=== PATIENT | female | born 1975 | race Caucasian/White ===

== ENCOUNTER → 2023-12-08 11:54 | Day surgery (SDC) | payer BC, SELFPAY ==
[2023-12-08] VITALS (14 sets, daily range): BP systolic 111–152; BP diastolic 68–101; BMI 42.8
--- NOTE | 2023-12-08 01:31 | ED.GENMED ---
History of Present Illness
General
Chief Complaint: Throat Problem
Source: patient and previous hospital records (ED visit 2 years ago for very similar complaint/globus sensation after swallowing a pill. Concern for retained esophageal pill fragments. EGD at that time showed normal esophagus no evidence of
stricture nor retained pill fragments there was note of mild gastritis.)
Exam Limitations: none
Time Seen by Provider: 12/08/23 01:14
Nursing documentation reviewed up to this point in time: agreed with
Travel History
Have you had any contact with someone who has COVID-19?: No
Do you have any symptoms of coronavirus? Fever > 100 degrees, chills, cough, shortness of breath, sore throat, loss of taste or smell, muscle aches, or headache?: No
History of Present Illness
History of Present Illness:
This is a 48-year-old woman who has history of seasonal allergies maintained on antihistamine. She also notes intermittent episodes of odynophagia feeling that food gets stuck in her esophagus but after some time generally resolves.
She presented to this ED 2 years ago with similar complaints of dysphagia/odynophagia after swallowing a pill but at that time no vomiting. Evaluated by GI during that ED visit and underwent upper endoscopy which showed normal esophagus, no
retained pill fragments but there was note of mild gastritis.
She has had no follow-up with GI since then and does admit that symptoms have worsened over the past 6 to 12 months generally occurring every 2 to 3 months.
Tonight while at a wedding she ate a piece of soto wrapped filet mignon around 6:30 PM with immediate choking sensation and then sense of mid substernal chest discomfort and since then has been intermittently vomiting saliva every 20 to 30 minutes
and abrupt regurgitation of water after swallowing. She denies cough nor shortness of breath. She does admit to persistent mild substernal discomfort, ache that is nonradiating.
Similar symptoms with previous esophageal food obstructions that generally resolve within a few hours but no resolution since 6:30 PM last night. She denies hematemesis. No fever nor chills.
She takes no anticoagulants.
She denies alcohol nor drug use as well as non-smoker.
Last menstrual period 3 to 4 months ago which is not unusual for her. She denies risk of .
Past History
Past History
ED Past Medical History: Asthma, Other (Seasonal allergies) and Other (Intermittent esophageal food obstruction which generally resolve on their own. Prior upper endoscopy November 2021 showed normal esophagus, mild gastritis)
ED Past Surgical History: Other (Right Carpal Tunnel Surgery)
Patient has exhibited threatening behavior?: No
Social History
Tobacco: Non-smoker
Alcohol: None
Drug: None
Personal:
Living: with family
Employment: Employed ([employer])
Family History
Family History: CAD; Negative Early CAD
Phy Exam
Physical Exam
Physical Exam:
GENERAL: 48-year-old overweight woman appears her stated age, awake and alert, appears in mild distress, holding emesis bag at the ready intermittently spitting saliva into the bag. is accompanying.
EYE: anicteric
NECK: Supple, nontender, no meningismus, no significant adenopathy.
ENT: posterior pharynx is clear, oral mucosa is moist. No rhinorrhea.
CARDIAC: Regular rate and rhythm. no murmur.
LUNGS: Clear breath sounds bilaterally, no acute respiratory distress, no wheezes/rales/rhonchi
ABDOMEN: Rotund, soft, nondistended, without focal tenderness, no r/g, normoactive BS.
NEUROLOGICAL: Alert and oriented x3, no focal neuro deficits.
SKIN: Warm and dry, normal color, skin intact. No rash.
MUSCULOSKELETAL: No C/C/E. peripheral pulses are full and equal b/l. No palpable tenderness.
PSYCH: Normal and appropriate interaction.
Course
Orders/Labs/Results
Orders:
Orders
12/08/23 01:26
0.9% Sodium Chloride 1000 ml [Nss] 1,000 ml IV BOLUS
Glucagon [GlucaGen] 1 mg IV NOW STA
Pantoprazole [Protonix IV] 40 mg IV NOW STA
12/08/23 01:27
Electrocardiogram (*1) Urgent
Reason for Study: Chest Pain
EKG- Treatment ONCE
Test Result ONCE
12/08/23 01:35
Complete Blood Count/With Diff Urgent
Comprehensive Metabolic Panel Urgent
HCG, Serum Qualitative Screen Urgent
Lipase Urgent
12/08/23 03:33
Encourage PO Hydration-Treatme ONCE
12/08/23 06:42
0.9% Sodium Chloride 1000 ml [Nss] 1,000 ml IV 150 mls/hr
Abnormal Lab Results
12/08/23
01:35
Absolute Neuts (auto) 6.8 H 10^3/uL
(1.4-6.5)
Absolute Monos (auto) 0.8 H 10^3/uL
(0.1-0.6)
Lymphocytes % 17.8 L %
(20.5-51.1)
Chloride 109 H mmol/L
(98-107)
Glucose 125 H mg/dl
(70-99)
AST 44 H U/L
(14-36)
ALT 57 H U/L
(0-35)
Total Protein 8.3 H g/dl
(6.3-8.2)
12/08/23 01:35
12/08/23 01:35
Vital Signs
Initial and Last Documented VS:
Initial Vital Signs
Temp Pulse Resp BP Pulse Ox
98.1 F 99 20 152/101 97
12/08/23 01:05 12/08/23 01:05 12/08/23 01:05 12/08/23 01:05 12/08/23 01:05
Last Documented Vital Signs
Temp Pulse Resp BP Pulse Ox
98.1 F 90 16 140/98 98
12/08/23 01:05 12/08/23 02:50 12/08/23 02:50 12/08/23 02:50 12/08/23 02:50
MDM/Problems Addressed
Differential Diagnosis Includes:
History is quite concerning for esophageal meat impaction. Severe esophagitis, CAD are less likely.
Will check labs, EKG and trial an IV dose of glucagon, Protonix and initiate IV fluids.
Will plan for GI consult.
Chronic conditions affecting care: Asthma
*Pulse Oximetry
Patient hypoxic: no
*EKG
Interpreted by ED Provider?: Yes
Interpretation: normal
Comparison EKG: no changes (Unchanged from previous July 2013)
Rate: normal
Rhythm: sinus
[place]: normal axis
Interval: normal interval
QRS Pattern: normal QRS
Ischemia: no ischemia
*Mechanic Recovery Interpretation
Rate: normal
Interpretation: normal
Rhythm: sinus
*Critical Care Note
Total Time (30-74mins, 75-104mins- exclusive of procedures): Not Applicable
Update Note
Update Note:
12/08/2023 04:00 AM
Patient had been feeling improved with no further vomiting thus trial of oral water which unfortunately resulted in recurrent vomiting/regurgitation of his water.
I suspect distal esophageal obstruction/food impaction.
GI has been notified, case discussed with Dr. Hamlin.
Will plan for EGD this a.m.
Patient advised. Will maintain n.p.o. status, no further oral fluid challenges. Will initiate maintenance IV fluids.
Labs showed normal CBC, minimally elevated LFTs, similar elevations noted 2012. Electrolytes within normal limits. Normal BUN and creatinine. hCG is negative as expected.
ED Attending Note
-
Portions of this chart may have been created with voice recognition software.� Occasional wrong word or��sound alike� substitutions may have occurred due to the inherent limitations of voice recognition software.
Discharge Plan
Departure
Patient Disposition: GI LAB
Date of Disposition: 12/08/23
Time of Disposition: 04:00
Admit to doctor: Do
Presentation/result/management discussed w/ accepting MD/: GI
Patient with high blood pressure during this ER visit?: Yes
Condition: Fair
Discharge Problem:
Esophageal obstruction due to food impaction
Instructions: Food Obstruction, BLOOD PRESSURE
Prescriptions:
No Action
cetirizine [Zyrtec] 10 MG tablet
10 mg PO DAILY
diphenhydramine HCl [Banophen] 25 MG capsule
25 mg PO BID PRN (Reason: allergies)
Referrals:
Armin Stephens MD [Family Provider] -
Hailey Hamlin MD [Active] - Call in 1-3 days for appt
Interventions
Interventions:
*Risk Screen - Suicide Last Done: 12/08/23 01:05
*General Assessment Last Done: 12/08/23 01:05
*Neglect/Abuse Screening Last Done: 12/08/23 01:05
ED- Fall Risk Assessment Last Done: 12/08/23 01:05
*ED COVID-19 Vaccine History Last Done: 12/08/23 01:05
ED-EENT Assessment Last Done: 12/08/23 01:41
ED- Pulmonary Assessment Last Done: 12/08/23 01:41
Discharge Date and Time
Print Language: NIGERIEN
[2023-12-08] MEDS: NSS 1000 IV ×2 (01:38→07:22)
[2023-12-08] MEDS: GlucaGen 1 MG IV (01:38)
[2023-12-08] MEDS: PROTONIX IV 40 MG IV (01:39)
[2023-12-08 01:43] LABS: % Basophils 0.3 % (0-2); % Eosinophils 3.6 % (0-6); % Immature Granulocytes 0.4 % (0-0.5); % Lymphocytes 17.8 % (20.5-51.1); % Monocytes 8.6 % (1.7-9.3); % Neutrophils 69.3 % (42.2-75.2); Absolute Eosinophils 0.4 10^3/uL (0-0.7); Absolute Lymphocytes 1.8 10^3/uL (1.2-3.4); Absolute Monocytes 0.8 10^3/uL (0.1-0.6); Absolute Neutrophils 6.8 10^3/uL (1.4-6.5); Hematocrit 40.7 % (37.0-47.0); Mean Corp Hgb Conc. 34.4 g/dL (33.0-37.0); Mean Corpuscular Hgb 29.6 pg (27.0-31.0); Mean Platelet Volume 10.1 fL (7.4-10.4); Nucleated Red Blood Cells % 0 %; Platelet Count 262 10^3/uL (130-400); Red Blood Cell Count 4.73 10^6/uL (4.20-5.40); Red Cell Dist. Width 13.4 % (11.5-14.5); White Blood Cell Count 9.8 10^3/uL (4.8-10.8)
[2023-12-08 01:53] LABS: HCG, Serum Qualitative Screen Negative
[2023-12-08 02:03] LABS: ALT (SGPT) 57 U/L (0-35); AST (SGOT) 44 U/L (14-36); Albumin 4.9 g/dl (3.5-5.0); Alkaline Phosphatase 83 U/L (38-126); Blood Urea Nitrogen 15 mg/dl (7-17); Calcium 9.6 mg/dl (8.4-10.2); Carbon Dioxide 24 mmol/L (22-30); Chloride 109 mmol/L (98-107); Estimated Creatinine Clearance > 125 ml/min; Glucose 125 mg/dl (70-99); Lipase 98 U/L (23-300); Potassium 3.7 mmol/L (3.5-5.1); Sodium 141 mmol/L (135-145); Total Bilirubin 0.4 mg/dl (0.2-1.3); Total Protein 8.3 g/dl (6.3-8.2); eGFR > 60.00
[2023-12-08] MEDS: MORPHINE SULFATE 4 MG IV (07:23)
--- NOTE | 2023-12-08 07:39 | CON.GI ---
Addendum entered and electronically signed by Hailey Moran Do, MD 12/08/23 11:14:
I saw and examined the patient.
The RESEARCH CENTER DIRECTOR's note was reviewed and I agree with the note.
Comment: Argelia is a 48yo W with h/o obesity and asthma who presents with food impaction. Unable to tolerate secretions. She has h/o dysphagia in past with food impaction in 2021 also requiring EGD with Dr Capellan. At that time food bolus had
passed. This time despite glucagon did not pass. Exam VSS NTTP, NABS. Labs with mild elevations in AST/ALT.
Impressions:
- Acute food impaction
- Asthma
- Obesity
- Elevated LFTs
Recommendation:
- Urgent EGD with plan for disimpaction
- Risk/benefits discussed
- Recommend PPI daily afterwards
- Plan to intubate
- Will need close GI OP follow up for workup of dysphagia. Strong suspicion for EoE given associated asthma history
All questions answered.
Addendum entered and electronically signed by TEN Tamayo 12/08/23 09:52:
message sent to office to arrange GI follow up
Original Note:
Consultation
-
Date/Time Consultation Requested: 12/08/23729
Date/Time Consultation Performed: 12/08/23729
Requesting Provider: Jenny Ferro DO
Performing Provider: TEN Avitia, Hailey Hamlin MD
Reason for Consultation: food impaction
Medical History
Chief Complaint / HPI
Chief Complaint: inability to swallow
History of Present Illness:
Pt is a 48yo with hx arthritis with regular NSAID use, Asthma, prior EGD 2021 with feeling pill stuck in throat and noted gastritis, erythematous duodenopathy she now presents with concern for food impaction since eating soto wrap at at wedding at
6:30pm. She admits to food sticking in past at random times but several episodes in past month. She was given Glucagon in ER without improvement and still with drooping and feeling of inability to pass food bolus.
She has current odynophagia, nausea, vomiting secretion and chest pain with food impaction. She denies chronic GERD or antiacid use, diarrhea, constipation, wt loss, or rectal bleeding.
11/2021 EGD [facility]- normal esophagus, gastritis, erythematous duodenopathy
Past Medical History
Past Medical History: Asthma and Other (seasonal allergies, intermittent food impactions, gastritis, arthritis )
Past Surgical History: Other (carpel tunnel surgery )
Social History
Tobacco: Non-Smoker
Alcohol: Occasional (rare )
Drug: None
Living: With Family
Employment: Employed
Family History
Family History: Reviewed & Not Pertinent
Allergies / Home Medications
Allergy/AdvReac Type Severity Reaction Status Date / Time
No Known Allergies Allergy Verified 11/30/21 03:45
�Medication �Instructions �Recorded
cetirizine 10 mg tablet (Zyrtec) 10 mg PO DAILY 11/30/21
diphenhydramine HCl 25 mg capsule 25 mg PO BID PRN allergies 11/30/21
(Banophen)
Review of Systems
-
History Source: Patient
Constitutional: Reports No Symptoms
EENT: Reports Other (odynophagia, drooping)
Respiratory: Reports Trouble Breathing (at times with Asthma)
Cardiac: Reports Chest Pain (with food bolus)
Abdomen/GI: Reports Nausea and Other (drooling with food bolus)
: Reports No Symptoms
Musculoskeletal: Reports Other (arthritis feet with regular NSAID use)
Neurological: Reports No Symptoms
Endocrine: Reports No Symptoms
Hematologic/Lymphatic: Reports No Symptoms
Vital Signs
Temp Pulse Resp BP Pulse Ox
97.6 F 90 20 128/86 97
12/08/23 07:25 12/08/23 07:25 12/08/23 07:25 12/08/23 07:25 12/08/23 07:25
Physical Exam
Exam
General: Well Developed, Well Nourished and Other (distress with food bolus-- sitting up in bed but calm and cooperative and drooling )
HEENT: Normocephalic and Anicteric
Respiratory: Clear
Cardiac: Regular Rhythm
GI: Soft, Non Tender and Non Distended
Musculoskeletal: No Clubbing and No Cyanosis
Skin: Warm and Dry
Neuro: Awake, Alert and AO x 3
Psych: Calm
Results
WBC 9.8 10^3/uL (4.8-10.8) 12/08/23 01:35
Hgb 14.0 g/dL (12.0-16.0) 12/08/23 01:35
Hct 40.7 % (37.0-47.0) 12/08/23 01:35
MCV 86.0 fL (81.0-99.0) 12/08/23 01:35
Plt Count 262 10^3/uL (130-400) 12/08/23 01:35
Absolute Neuts (auto) 6.8 10^3/uL (1.4-6.5) H 12/08/23 01:35
Sodium 141 mmol/L (135-145) 12/08/23 01:35
Potassium 3.7 mmol/L (3.5-5.1) 12/08/23 01:35
Chloride 109 mmol/L (98-107) H 12/08/23 01:35
Carbon Dioxide 24 mmol/L (22-30) 12/08/23 01:35
BUN 15 mg/dl (7-17) 12/08/23 01:35
Creatinine 0.6 mg/dL (0.6-1.0) 12/08/23 01:35
Calcium 9.6 mg/dl (8.4-10.2) 12/08/23 01:35
Total Bilirubin 0.4 mg/dl (0.2-1.3) 12/08/23 01:35
AST 44 U/L (14-36) H 12/08/23 01:35
ALT 57 U/L (0-35) H 12/08/23 01:35
Alkaline Phosphatase 83 U/L (38-126) 12/08/23 01:35
Lipase 98 U/L (23-300) 12/08/23 01:35
Diagnostic Image Results:
Prior GI Procedures:
EGD: 11/2021 EGD [facility]- normal esophagus, gastritis, erythematous duodenopathy
Colonoscopy: none
Assessment / Plan
-
Pt is a 48yo with hx arthritis with regular NSAID use, Asthma, prior EGD 2021 with feeling pill stuck in throat and noted gastritis, erythematous duodenopathy she now presents with concern for food impaction since eating soto wrap at at wedding at
6:30pm. She admits to food sticking in past at random times but several episodes in past month. She was given Glucagon in ER without improvement and still with drooping and feeling of inability to pass food bolus.
-food impaction
-hx intermitttent food impaction not requiring admission
-hx prior EGD for pill sticking with noted gastritis, erythematous duodenopathy
-asthma
-Regular NSAID use for arthritis
PLAN:
etiology of symptoms with concern for food impaction
possible underlying EOE, dysmotility, esophagitis with NSAID use vs other
no improvement with glucagon
plan for EGD today
cont NPO
discussed NSAID avoidance
will need PPI
OP follow up with Dr. Capellan-- will also need screening colonoscopy OP
-
-
Thank you for consultation and allowing me to participate in the patient's care. Please call the donor services technician GI physician during the after hours with any questions or concerns.
--- NOTE | 2023-12-08 11:14 | W.PN.UPDATE ---
Update Note
Progress Note Update
For billing purposes
== END ==
LOC: EMR 00:59 → PACU 11:54
PROVIDERS: ATTENDING PHYSICIAN Internal Medicine Gastroenterology; EMERGENCY PHYSICIAN Emergency Medicine; FAMILY PHYSICIAN Internal Medicine
DX: T18.128A Food in esophagus causing other injury, initial encounter (principal); Y93.89 Activity, other specified; K31.89 Other diseases of stomach and duodenum
CPT/HCPCS: 43247; 80053; 83690; 84703; 85025; 93005; 96361; 96374; 96375; 99284; J1610

== ENCOUNTER → 2023-12-10 08:32 | Outpatient (REF) | payer BC, SELFPAY | LOC: RAD 08:32 | PROVIDERS: ATTENDING PHYSICIAN Internal Medicine Gastroenterology; FAMILY PHYSICIAN Internal Medicine | DX: T18.128D Food in esophagus causing other injury, subsequent encounter (principal); W44.F3XD Food entering into or through a natural orifice, subsequent encounter | CPT/HCPCS: 71046 ==

== ENCOUNTER 2023-12-19 16:06 | Emergency (ER) | payer BC, SELFPAY ==
[2023-12-19 16:08] VITALS: BP 143/99; BMI 42.5
[2023-12-19 16:51] VITALS: BP 120/83
[2023-12-19 17:00] VITALS: BP 105/77
--- NOTE | 2023-12-19 17:02 | ED.GENMED ---
History of Present Illness
General
Chief Complaint: Abdominal Symptoms
Source: patient
Exam Limitations: none
Time Seen by Provider: 12/19/23 16:50
Travel History
Have you had any contact with someone who has COVID-19?: No
Do you have any symptoms of coronavirus? Fever > 100 degrees, chills, cough, shortness of breath, sore throat, loss of taste or smell, muscle aches, or headache?: No
History of Present Illness
History of Present Illness:
See MDM
Past History
Past History
ED Past Medical History: Asthma, Other (Seasonal allergies) and Other (Intermittent esophageal food obstruction which generally resolve on their own. Prior upper endoscopy November 2021 showed normal esophagus, mild gastritis)
ED Past Surgical History: Other (Right Carpal Tunnel Surgery)
Patient has exhibited threatening behavior?: No
Social History
Tobacco: Non-smoker
Alcohol: None
Drug: None
Personal:
Living: with family
Employment: Employed ([employer]
Family History
Family History: CAD; Negative Early CAD
Phy Exam
Physical Exam
Physical Exam:
See MDM
Course
Orders/Labs/Results
Orders:
Orders
12/19/23 16:11
EKG [Electrocardiogram (*1)] Urgent
Reason for Study: Chest Pain
12/19/23 16:12
EKG- Treatment ONCE
12/19/23 16:54
0.9% Sodium Chloride 1000 ml [Nss] 1,000 ml IV BOLUS
Glucagon [GlucaGen] 1 mg IV NOW STA
12/19/23 17:40
Glucagon [GlucaGen] 1 mg IV NOW STA
12/19/23 18:14
Viscous Lidocaine 2% [Xylocaine Viscous Cup] 15 ml PO ONCE ONE
Vital Signs
Initial and Last Documented VS:
Initial Vital Signs
Temp Pulse Resp BP Pulse Ox
98 F 108 20 143/99 96
12/19/23 16:08 12/19/23 16:08 12/19/23 16:08 12/19/23 16:08 12/19/23 16:08
Last Documented Vital Signs
Temp Pulse Resp BP Pulse Ox
98 F 95 18 107/73 96
12/19/23 16:08 12/19/23 16:53 12/19/23 16:53 12/19/23 18:00 12/19/23 18:00
MDM/Problems Addressed
Differential Diagnosis Includes:
HPI and MDM Narrative:
48-year-old female presenting with chest discomfort and trouble swallowing secretions. Patient states this is very similar presentation to 2 weeks ago where she required endoscopy for esophageal food bolus removal. She was then placed on Protonix.
Symptoms reoccurred earlier today after she was eating cake. She drank water and felt as if the water stayed down but then she started spitting up her mucus and saliva.
Given her recent history for esophageal food obstruction, will give IV fluids and glucagon and reassess
Physical exam
General: Mildly uncomfortable
HEENT: protecting airway. Dry mucous membranes
Neck: appears supple
CV: No evidence of cyanosis. Regular rate and rhythm
Resp: No accessory muscle use
Abd: Non-distended
Extremities: No deformities
Neuro: alert
Psych: Normal affect
Skin: Intact
Problems Addressed including Acute and Chronic Conditions affecting care:
1. Esophageal food impaction
Acuity: acute
Prognosis: stable
Details: Patient having trouble with secretions. Will give glucagon and reassess
Updates
After 2 doses of glucagon, patient feeling better. She is tolerating water. I gave dose of viscous lidocaine. Patient now able to eat applesauce without difficulty. She feels comfortable going home
Differential Diagnosis (but not limited to): Esophageal food impaction, eosinophilic esophagitis
Testing considered: Chest x-ray
Drug therapy (if applicable): OTC meds, please see d/c instruction regarding Rx drugs
Amount and/or Complexity of Data Reviewed
Clinical info obtained from: Patient
External data reviewed: Recent endoscopy showing evidence of erythematous esophageal mucous membranes and food bolus
Labs I independently reviewed (but not limited to): N/A
Radiology: N/A
Pulse Ox: not hypoxic
EKG independently reviewed: Sinus rhythm, normal axis, no STEMI
Precision Farming Coordinator: N/A
Critical Care: N/A
Risk of Complication:
Social Determinants of health: Good social support
Discussed with other providers: N/A
Escalation of Care includes Admit/Obs: After being observed in the Emergency Department, pt stable for discharge.
Occasional wrong word or 'sound a like' substitutions may have occurred due to the inherent limitations of voice recognition software. Read the chart carefully and recognize, using context, where substitutions have occurred.
*Critical Care Note
Total Time (30-74mins, 75-104mins- exclusive of procedures): Not Applicable
ED Attending Note
-
Portions of this chart may have been created with voice recognition software.� Occasional wrong word or��sound alike� substitutions may have occurred due to the inherent limitations of voice recognition software.
Discharge Plan
Departure
Patient Disposition: Home (Routine Discharge)
Date of Disposition: 12/19/23
Time of Disposition: 18:35
Patient with high blood pressure during this ER visit?: No
Discharge Problem:
Esophagitis
Instructions: Esophagitis
Prescriptions:
No Action
cetirizine [Zyrtec] 10 MG tablet
10 mg PO DAILY
diphenhydramine HCl [Banophen] 25 MG capsule
25 mg PO BID PRN (Reason: allergies)
Referrals:
Armin Stephens MD [Family Provider] -
Activity Restrictions/Additional Instructions:
Please return for any worsening symptoms.
You may return at any time if you have further concerns.
Please follow up with your doctor and the philosophy and religion instructor.
Thank you for choosing [facility].
Interventions
Interventions:
*Risk Screen - Suicide Last Done: 12/19/23 16:08
*General Assessment Last Done: 12/19/23 16:42
*Neglect/Abuse Screening Last Done: 12/19/23 16:08
ED- Fall Risk Assessment Last Done: 12/19/23 18:29
*ED COVID-19 Vaccine History Last Done: 12/19/23 16:08
DP-Jcobpp-Cenhhxgsyq Assessment Last Done: 12/19/23 16:52
Discharge Date and Time
Print Language: SWEDISH
[2023-12-19] MEDS: NSS 1000 IV (17:12)
[2023-12-19] MEDS: GlucaGen 1 MG IV ×2 (17:12→17:44)
[2023-12-19 18:00] VITALS: BP 107/73
[2023-12-19] MEDS: XYLOCAINE VISCOUS CUP 15 ML PO (18:16)
== END 2023-12-19 18:44 | disposition home or self-care (01) ==
LOC: EMR 16:06
PROVIDERS: EMERGENCY PHYSICIAN Student in an Organized Health Care Education/Training Program; FAMILY PHYSICIAN Internal Medicine
DX: K20.90 Esophagitis, unspecified without bleeding (principal)
CPT/HCPCS: 99284; 96374; 96376; 96361; 93005; J1610

== ENCOUNTER → 2024-02-27 06:24 | Day surgery (SDC) | payer BC, SELFPAY | LOC: GI 06:24 | PROVIDERS: ATTENDING PHYSICIAN Internal Medicine | DX: K20.0 Eosinophilic esophagitis (principal); K29.50 Unspecified chronic gastritis without bleeding; B96.81 Helicobacter pylori [H. pylori] as the cause of diseases classified elsewhere; K22.89 Other specified disease of esophagus; R13.10 Dysphagia, unspecified | CPT/HCPCS: 43239; 88305; 88342 ==

== ENCOUNTER 2024-12-05 19:50 | Observation (INO) | payer BC, SELFPAY ==
[2024-12-05 15:00] VITALS: BP 134/90
[2024-12-05 15:19] LABS: % Basophils 0.2 % (0-2); % Eosinophils 3.8 % (0-6); % Immature Granulocytes 0.3 % (0-0.5); % Lymphocytes 24.6 % (20.5-51.1); % Monocytes 8.3 % (1.7-9.3); % Neutrophils 62.8 % (42.2-75.2); Absolute Eosinophils 0.2 10^3/uL (0-0.7); Absolute Lymphocytes 1.4 10^3/uL (1.2-3.4); Absolute Monocytes 0.5 10^3/uL (0.1-0.6); Absolute Neutrophils 3.7 10^3/uL (1.4-6.5); Hematocrit 38.4 % (37.0-47.0); Hemoglobin 13.1 g/dL (12.0-16.0); Mean Corp Hgb Conc. 34.1 g/dL (33.0-37.0); Mean Corpuscular Hgb 29.9 pg (27.0-31.0); Mean Corpuscular Volume 87.7 fL (81.0-99.0); Mean Platelet Volume 10.3 fL (7.4-10.4); Nucleated Red Blood Cells % 0 %; Platelet Count 278 10^3/uL (130-400); Red Blood Cell Count 4.38 10^6/uL (4.20-5.40); Red Cell Dist. Width 13.8 % (11.5-14.5); White Blood Cell Count 5.8 10^3/uL (4.8-10.8)
[2024-12-05 15:32] LABS: ALT (SGPT) 41 U/L (0-35); AST (SGOT) 34 U/L (14-36); Albumin 4.8 g/dl (3.5-5.0); Alkaline Phosphatase 87 U/L (38-126); Blood Urea Nitrogen 11 mg/dl (7-17); Calcium 9.4 mg/dl (8.4-10.2); Carbon Dioxide 26 mmol/L (22-30); Chloride 103 mmol/L (98-107); Glucose 107 mg/dl (70-99); Potassium 3.9 mmol/L (3.5-5.1); Sodium 140 mmol/L (135-145); Total Bilirubin 0.5 mg/dl (0.2-1.3); Total Protein 7.9 g/dl (6.3-8.2); eGFR > 60.00
--- NOTE | 2024-12-05 18:02 | ED.GENMED ---
History of Present Illness
General
Chief Complaint: Numbness
Time Seen by Provider: 12/05/24 17:47
History of Present Illness
History of Present Illness:
Patient is a 49-year-old woman with history of NAFLD D, asthma presenting to the emergency department with numbness tingling. Patient states that she woke up at 11 AM with a mild headache. She does have history of migraines. This does feel
similar to her migraines. The headache does slowly get better. At 1:45 PM she was at work when she noticed that her cheek went numb. She got evaluated by a nurse at her work and was found to have a right facial droop and right upper extremity
weakness and was sent to the emergency department. Patient states that her symptoms have seemed to resolve though she still feels off. Her headache is a 3 out of 10. She does feel some numbness to her cheek still. No traumatic injuries. No
chest pain. No shortness of breath
Past History
Past History
ED Past Medical History: Asthma, Other (Seasonal allergies) and Other (Intermittent esophageal food obstruction which generally resolve on their own. Prior upper endoscopy November 2021 showed normal esophagus, mild gastritis)
ED Past Surgical History: Other (Right Carpal Tunnel Surgery)
Patient has exhibited threatening behavior?: No
Social History
Tobacco: Non-smoker
Alcohol: None
Drug: None
Personal:
Living: with family
Employment: Employed ([employer])
Family History
Family History: CAD; Negative Early CAD
Phy Exam
Physical Exam
Physical Exam:
GENERAL: in no acute distress
HEENT: normocephalic, extraocular movements intact, moist oral mucosa
NECK: normal inspection
RESPIRATORY: no respiratory distress, clear to auscultation bilaterally
CARDIOVASCULAR: regular rate and rhythm
ABDOMEN/: soft, non-distended, non-tender to palpation, no rebound or guarding
EXTREMITIES: non-tender, no edema/swelling
NEUROLOGIC: NIH 2 alert and oriented x 3, cranial nerves II-XII intact, right upper extremity strength 4/5, left upper extremity strength 5/5, right lower extremity strength 5/5, left lower extremity strength 5/5, decreased sensation to the right
cheek and right arm normal [id number] and [id number], gait not tested formally
SKIN: warm
NIH Stroke Score
Level of Consciousness: 0 - Alert
LOC questions: 0-Answers both correctly
LOC Commands: 0-Performs both correctly
Best Gaze: 0-Normal
Visual Luis: 0=Normal, no visual loss
Facial palsy: 0=Normal, symmetrical
Motor - Right Arm: 1=Drift < 10 seconds
Motor - Left Arm: 0=No drift 10 seconds
Motor - Right Le-No drift 5 seconds
Motor - Left Le-No drift 5 seconds
Limb Ataxia: 0-Absent
Sensation: 1-Mild loss
Best Language: 0-No aphasia
Dysarthria: 0-Normal
Extinction and Inattention: 0-No abnormality
Total Score:: 2
Course
Orders/Labs/Results
Orders:
Orders
12/05/24 15:08
CT Head W/o Iv Contrast Urgent
Comment:
Reason For Exam: numbness/tingling right side of face
12/05/24 15:10
Complete Blood Count/With Diff Urgent
Comprehensive Metabolic Panel Urgent
12/05/24 17:47
Electrocardiogram (*1) Urgent
Reason for Study: TIA/Stroke
EKG- Treatment ONCE
12/05/24 18:07
CT HEAD/NECK ANG STROKE ALERT Urgent
Comment:
Reason For Exam: right deficits
12/05/24 18:56
Aspirin Chewable [Low Strength Aspirin] 324 mg PO NOW STA
Clopidogrel Bisulfate [Plavix] 300 mg PO NOW STA
12/05/24 19:00
Atorvastatin [Lipitor] 20 mg PO QPM
12/05/24 19:16
Glycohemoglobin (HgbA1c) Routine
12/05/24 19:36
Admit/Transfer Patient As Directed
Co-Sign Provider:
Level of Care: Observation services
Assign to:: Telemetry
Physician / Group: Marissa
Diagnosis: Headache / Right Facial Numbness
Reason for Telemetry: CVA/TIA
Date to Stop Telemetry: 12/08/24
Time to Stop Telemetry: 11:00
PRN Pain Medication Management As Directed
May give lesser potent ordered pain med per pt: Yes
preference::
Protocol:: Medication orders for pain may be administered in a
manner that supports deferring to patient preference
when the pt is:
- Requesting an ordered lesser potent pain medication.
Least to most potent pain medications are defined
as: acetaminophen < NSAID < tramadol < opioids
(morphine, oxycodone, hydromorphone).
- Requesting a lesser dose of the same medication IF
ORDERED.
- Requesting a less intrusive route of administration
if both routes are prescribed by the provider (PO <
IV).
12/05/24 19:37
Code Status As Directed
Resuscitation Status: Full Code
12/05/24 19:38
MR Brain W/o & With Contrast Routine
Comment:
Reason For Exam: Headache / Right Facial numbness
Recent pill cam endoscopy?: No
12/06/24 06:00
Cardiovascular Evaluation IN AM
12/06/24 08:00
Aspirin Low Dose EC [Aspir Low (Enteric Coated)] 81 mg PO DAILY
Clopidogrel Bisulfate [Plavix] 75 mg PO DAILY
12/08/24 11:00
DC Protocol for Telemetry ONCE
Abnormal Lab Results
12/05/24
15:10
Glucose 107 H mg/dl
(70-99)
ALT 41 H U/L
(0-35)
12/05/24 15:10
12/05/24 15:10
Vital Signs
Initial and Last Documented VS:
Initial Vital Signs
Temp Pulse Resp BP Pulse Ox
98.1 F 73 16 134/90 100
12/05/24 15:00 12/05/24 15:00 12/05/24 15:00 12/05/24 15:00 12/05/24 15:00
Last Documented Vital Signs
Temp Pulse Resp BP Pulse Ox
98.1 F 82 16 138/90 100
12/05/24 15:00 12/05/24 19:15 12/05/24 19:15 12/05/24 19:00 12/05/24 15:00
MDM/Problems Addressed
Differential Diagnosis Includes:
Patient is a 49-year-old woman presenting to the emergency department with headache and right-sided deficits that have been improving. During my evaluation patient's vitals were unremarkable the patient did have right-sided including a right upper
extremity drift and decreased sensation. Concern for TIA/CVA with complex migraine. Patient did have a CT scan completed prior to my evaluation which was negative for any acute abnormality. There was a arachnoid cyst seen. I did discuss with
on-call neurology given patient's symptoms and he recommended taking patient back for CT angio. Stroke alert was then called. During neurology evaluation NIH was 0. Given that the symptoms was improved TNK was held off. He did complete a SPG
block as a migraine treatment however had no effect. After shared decision making patient would prefer to be admitted for further workup. Discussed with hospitalist who excepted patient to their service
*Critical Care Note
Total Time (30-74mins, 75-104mins- exclusive of procedures): Not Applicable
ED Attending Note
-
Portions of this chart may have been created with voice recognition software.� Occasional wrong word or��sound alike� substitutions may have occurred due to the inherent limitations of voice recognition software.
Discharge Plan
Departure
Patient Disposition: Admit
Date of Disposition: 12/05/24
Time of Disposition: 19:23
Presentation/result/management discussed w/ accepting MD/DO: Hospitalist
Discharge Problem:
TIA (transient ischemic attack)
Prescriptions:
No Action
pantoprazole 40 mg tablet,delayed release (DR/EC)
40 mg PO DAILY
albuterol sulfate 90 mcg/actuation HFA aerosol inhaler
2 puff INHALATION Q6HPRN PRN (Reason: wheezing)
Referrals:
UNKNOWN - PT DOES,NOT KNOW [Family Provider] -
Interventions
Interventions:
*Risk Screen - Suicide Last Done: 12/05/24 15:00
*General Assessment Last Done: 12/05/24 15:00
*Neglect/Abuse Screening Last Done: 12/05/24 15:00
*ED COVID-19 Vaccine History Last Done: 12/05/24 15:00
ED- Neurological Assessment Last Done: 12/05/24 19:23
Discharge Date and Time
Print Language: ARABIC
--- NOTE | 2024-12-05 18:58 | CON.NEURO ---
Neuro Assessment/Plan
Assessment
head CT imgs rev'd, normal
CTA head/neck imgs rev'd, mild carotid plaque, no significant stenosis, no LVO
49 year old woman with history of migraines, presenting with mild headache and right sided weakness/numbness, substantially improved but not resolved
ddx including stroke, tia, new migraine aura
NIHSS of 0, no TNK as patient does not believe these symptoms are disabling
I performed SPG block (3 cc syringe, plastic iv catheter, squirt 0.75 cc of bupivicaine 0.5% in each nostril) as a migraine treatment - no effect
Plan
ASA 324 + 81 daily
Plavix 300 + 75 daily for 21 days
Lipitor 40
discussed inpatient vs outpatient work up, she would like to stay for tele and MRI but not wait until Sunday for an ECHO
Consultation
Order
Date of Consultation: 12/05/24
Requesting Provider: Brittney Elder
Reason for Consult: stroke alert
Subjective/Objective
Subjective Data
Date of Service: December 05, 2024
49 year old woman with history of migraine without aura, presenting right face/arm/leg weakness/numbness beginning 1:45 pm. associated with mild headache, and occasional twitches right side face. symptoms substantially improved but not resolved. no
bloodthinners
Objective Data
Vital Signs
Temp Pulse Resp BP Pulse Ox
36.7 C 87 14 134/90 100
12/05/24 15:00 12/05/24 18:45 12/05/24 18:45 12/05/24 15:00 12/05/24 15:00
Lab Results
12/05/24 15:10
12/05/24 15:10
Sodium 140 mmol/L (135-145) 12/05/24 15:10
Potassium 3.9 mmol/L (3.5-5.1) 12/05/24 15:10
BUN 11 mg/dl (7-17) 12/05/24 15:10
Glucose 107 mg/dl (70-99) H 12/05/24 15:10
Calcium 9.4 mg/dl (8.4-10.2) 12/05/24 15:10
Patient Allergies
No Known Allergies Allergy (Verified 12/05/24 15:04)
Physical Exam
-
AAOx3, speech clear, language intact
VFF, EOMI, face symmetric
trace right sided weakness
trace right sided vibratory loss
Medications
-
Active Medications
Generic Name Dose Route Start Last Admin
Trade Name Freq PRN Reason Stop Dose Admin
Aspirin 81 mg 12/06/24 08:00
Aspirin 81 Mg (Enteric Coated) Tablet PO 01/03/25 07:59
DAILY PRASHANT
Aspirin 324 mg 12/05/24 18:56
Aspirin 81 Mg Chewable Tablet PO 12/05/24 18:57
NOW STA
Atorvastatin Calcium 20 mg 12/05/24 19:00
Atorvastatin (Lipitor) 20 Mg Tablet PO 01/02/25 18:59
QPM PRASHANT
Clopidogrel Bisulfate 75 mg 12/06/24 08:00
Clopidogrel 75 Mg Tablet PO 12/26/24 08:01
DAILY PRASHANT
Clopidogrel Bisulfate 300 mg 12/05/24 18:56
Clopidogrel 300 Mg Tablet PO 12/05/24 18:57
NOW STA
Home Medications
�Medication �Instructions �Recorded
cetirizine 10 mg tablet (Zyrtec) 10 mg PO DAILY 11/30/21
diphenhydramine HCl 25 mg capsule 25 mg PO BID PRN allergies 11/30/21
(Banophen)
[2024-12-05 19:00] VITALS: BP 138/90
[2024-12-05] MEDS: LOW STRENGTH ASPIRIN 324 MG PO (19:07)
[2024-12-05] MEDS: PLAVIX 300 MG PO (19:08)
[2024-12-05] MEDS: LIPITOR 20 MG PO (19:08)
--- NOTE | 2024-12-05 19:31 | W.PN.UPDATE ---
Update Note
Progress Note Update
Patient seen in conjunction with TEN.' With the findings and physical. I agree with the assessment and plan.
Briefly, this is a 49-year-old with past medical history significant for migraine with aura. She reports that she had a usual onset of her migraine headaches today and she took Excedrin. After taking the Excedrin she started having numbness over
the right cheek and then 8 spread to the right scientologist as well as the right upper lip. She denies any numbness or tingling in her right upper or lower extremity. She denies any weakness in her extremities. She denied nausea or vomiting. After
taking the Excedrin and the pain improved however she continues to have pressure in her head.
On arrival to the emergency department she had a NIHSS that was reports of 0. She was evaluated by neurology. Per neurology the patient had mild right-sided weakness. She was treated for a migraine headache without improvement in her neurological
findings. The differential remains migraine with aura versus TIA.
Hemodynamically blood pressure was 130/90 with pulse of 87 and she was satting 100% on room air. She was afebrile. CBC was normal. Electrolytes BUN/creatinine were all normal. CT of the head shows small right-sided subarachnoid cyst likely. She
also has some sinusitis. CT angio was negative for any large vessel occlusion, dissection or aneurysm.
Given the risk-benefit assessment, patient was started on aspirin and Plavix with a load. She was also started on statin
Plan
- Admit to telemetry observation
- MRI with and without contrast to evaluate the subarachnoid finding as well as to evaluate for an acute stroke
- She is tolerating p.o. now, continue aspirin and Plavix daily x 71 days
- Continue statin
- BP is well-controlled off of any medications, monitor for now
- Neurochecks every 6 hours
- Lipid panel, A1c
- Echo if patient is able to stay until available
DVT prophylaxis with Lovenox subcu
CODE STATUS�full code
--- NOTE | 2024-12-05 19:44 | HPS.HSE ---
Family Physician
-
Family Physician: NOT KNOW UNKNOWN - PT DOES
Chief Complaint
-
Headache with Right Facial Numbness
History of Present Illness
Patient is a 49 y/o female past medical history of asthma, eosinophilic esophagitis, fatty liver disease, and migraine headaches who presents with headache with right facial numbness. Patient reports this morning she started with a headache which
seemed similar to her prior migraine. She took Excedrin which usually aborts her migraines but notes this time she still had some residual headache. Earlier this afternoon she developed right facial numbness. She notes the numbness intially went
away but then recurred prompting her to come to the emergency department for evaluation.
Medical History
Past Medical History
Past Medical History: Reports Other
Additional Past Medical History:
Non-Alcoholic Fatty Liver Disease
Eosinophilic Esophagitis
Asthma
Migraine Headaches
Morbid Obesity
Past Surgical History: Reports None
Social History
Tobacco: Non-smoker
Alcohol: Occasional
Family History
Family History: Not pertinent
Allergies / Home Medications
Allergies reflects when Allergies were last updated in [facility].
Home Medications with original date entered in [facility]
Allergy/Medication List:
Allergies
Allergy/AdvReac Type Severity Reaction Status Date / Time
No Known Allergies Allergy Verified 12/05/24 15:04
Home Medications
albuterol sulfate 90 mcg/actuation aerosol inhaler 2 puff inhalation Q6HPRN PRN wheezing 12/05/24
pantoprazole 40 mg tablet,delayed release 40 mg PO DAILY 12/05/24
Review of Systems
-
A 12 point ROS was completed and negative except as noted: Yes
Constitutional: Denies Fever or Chills
Respiratory: Denies Cough or Trouble Breathing
Cardiac: Denies Chest Pain or Palpitations
Neurological: Reports See HPI
Physical Exam
Vital Signs
Vital Signs
Temp Pulse Resp BP Pulse Ox
98.1 F 82 16 138/90 100
12/05/24 15:00 12/05/24 19:15 12/05/24 19:15 12/05/24 19:00 12/05/24 15:00
Physical Exam
General: Comfortable and Conversant
HEENT: Anicteric and Moist mucous membranes
Respiratory: Clear and Non Labored Respirations
Cardiac: S1/S2 and Regular Rhythm
GI: Soft and Non Tender
Rectal: Deferred by Provider
Musculoskeletal: No Clubbing, No Cyanosis and No Edema
Skin: Warm and Dry
Neuro: Awake, Alert and Oriented; No No Motor Deficits or Facial Droop
Psych: Calm
Laboratory Results
-
12/05/24 15:10
12/05/24 15:10
Laboratory Results
Total Bilirubin 0.5 mg/dl (0.2-1.3) 12/05/24 15:10
AST 34 U/L (14-36) 12/05/24 15:10
ALT 41 U/L (0-35) H 12/05/24 15:10
Alkaline Phosphatase 87 U/L (38-126) 12/05/24 15:10
Data Reviewed
-
CT Scan: Report Reviewed by me
Lab Data: Labs Reviewed by me
Impression/Plan
-
Headache with Right Facial Numbness, possibly Migraine with Aura vs TIA/CVA
-Appreciate Neurology
-Continue aspirin and Plavix
-Continue atorvastatin
-Check Brain MRI w/ and w/o contrast to further evaluate possible arachnoid cyst noted on head CT as well as possible stroke
-Monitor Neuro-checks
Eosinophilic Esophagitis
-Continue Protonix
Non-Alcoholic Fatty Liver Disease
-LFTs within normal range
Morbid Obesity due to Excess Calories
-Affects all aspects of care
DVT proph: SCDs
Code Status: Full Code
[2024-12-05 20:00] VITALS: BP 132/76
[2024-12-05 21:01] VITALS: BP 126/71
[2024-12-05 21:50] VITALS: BP 143/85; BMI 37.7
[2024-12-05] MEDS: OFIRMEV 100 IV (23:04)
[2024-12-05 23:18] VITALS: BP 131/87
[2024-12-06 03:38] VITALS: BP 120/74
[2024-12-06 07:00] LABS: Hematocrit 42.2 % (37.0-47.0); Hemoglobin 13.8 g/dL (12.0-16.0); Mean Corp Hgb Conc. 32.7 g/dL (33.0-37.0); Mean Corpuscular Hgb 29.2 pg (27.0-31.0); Mean Corpuscular Volume 89.4 fL (81.0-99.0); Mean Platelet Volume 10.7 fL (7.4-10.4); Platelet Count 275 10^3/uL (130-400); Red Blood Cell Count 4.72 10^6/uL (4.20-5.40); Red Cell Dist. Width 13.8 % (11.5-14.5); White Blood Cell Count 5.1 10^3/uL (4.8-10.8)
[2024-12-06 07:19] LABS: Blood Urea Nitrogen 11 mg/dl (7-17); Calcium 9.2 mg/dl (8.4-10.2); Carbon Dioxide 29 mmol/L (22-30); Chloride 104 mmol/L (98-107); Estimated Creatinine Clearance 114 ml/min; Glucose 93 mg/dl (70-99); HDL Cholesterol 55 mg/dl; LDL Cholesterol, Calculated 124 mg/dl; Magnesium 2.3 mg/dl (1.6-2.3); Sodium 142 mmol/L (135-145); Total Cholesterol 198 mg/dl (50-199); Triglyceride 98 mg/dl (10-149); Very Low Density Lipoprotein 19 mg/dl (0-30); eGFR > 60.00
[2024-12-06 07:25] VITALS: BP 126/76
[2024-12-06] MEDS: PLAVIX 75 MG PO (08:23)
[2024-12-06] MEDS: PROTONIX 40 MG PO (08:23)
[2024-12-06] MEDS: ASPIR LOW (ENTERIC COATED) 81 MG PO (08:23)
[2024-12-06 11:20] VITALS: BP 128/58
[2024-12-06 11:25] VITALS: BP 138/94; PULSE 78; O2SAT 100
[2024-12-06 11:36] VITALS: BP 138/94; PULSE 78
--- NOTE | 2024-12-06 11:52 | PTOTSP ---
Patient presents at an Independent level today with all functional mobility. All ROM and strength are WFLs with no deficits found. patient notes that there is still a small area of facial numbness present, but has been able to drink and eat without
issue. Patient presents today at her functional baseline and subjectively reports that she does not perceive any deficits regarding her functional mobility. At this time, there are no skilled needs present acutely. Please reconsult if that
changes. Will sign off.
--- NOTE | 2024-12-06 12:51 | W.PN.HOSP.TC ---
Addendum entered and electronically signed by Yanick Mejia MD 12/07/24 15:36:
[id number]
Addendum entered and electronically signed by Yanick Mejia MD 12/06/24 13:26:
dc on asa as well
Original Note:
Today's Communication/Plan
-
statin
f/u neuro and pcp outpt
f/u a1c and ldl outpt
echo outpt if needed
Assessment / Plan
Assessment / Plan
Physical Exam
General: Comfortable and Conversant
HEENT: Anicteric and Moist mucous membranes
Respiratory: Clear and Non Labored Respirations
Cardiac: S1/S2 and Regular Rhythm
GI: Soft and Non Tender
Rectal: Deferred by Provider
Musculoskeletal: No Clubbing, No Cyanosis and No Edema
Skin: Warm and Dry
Neuro: Awake, Alert and Oriented; No No Motor Deficits or Facial Droop
Psych: Calm
Headache with Right Facial Numbness, possibly Migraine with Aura
-Neuro recs
-MRI negative for acute pathology
-Stop ASA, Plavix
-Can continue statin
-pending a1c
-echo out
#Hyperlipidemia
-statin - lipitor 40mg qhs
-f/u outpt
Eosinophilic Esophagitis
-Continue Protonix
Non-Alcoholic Fatty Liver Disease
-LFTs within normal range
-educated on diet
Morbid Obesity due to Excess Calories
-Affects all aspects of care
-educated on diet
DVT proph: SCDs
Code Status: Full Code
More than 30 minutes spent in discharge including
Final examination of the patient
Summarizing hospital stay
Instructions for continuing care to all relevant caregivers
Preparation of discharge records, prescriptions, and referral forms
Total time spent (in minutes): 36
Anticipated Discharge: Today
Subjective/Interval History
-
Date of Service: December 06, 2024
No acute events overnight
Objective Data
-
Labs:
Laboratory Results
12/06/24
05:28
WBC 5.1
Hgb 13.8
Hct 42.2
Plt Count 275
Sodium 142
Potassium 4.0
Chloride 104
Carbon Dioxide 29
BUN 11
Creatinine 0.7
Glucose 93
Calcium 9.2
Vital Signs:
Vital Signs
Temp Pulse Resp BP Pulse Ox
97.8 F 80 18 128/58 97
12/06/24 11:20 12/06/24 11:20 12/06/24 11:20 12/06/24 11:20 12/06/24 11:20
Review of Systems
-
History Source: Patient
All other systems: Not reviewed unless documented
Data Reviewed
-
CT Scan: Report Reviewed by me
MRI: Report Reviewed by me
Labs: Labs Reviewed by me
--- NOTE | 2024-12-06 13:07 | W.PN.NEURO.1 ---
Today's Communication / Plan
-
ASA 81 daily
Lipitor 40
d/c home
Neuro Assessment/Plan
Assessment
head CT imgs rev'd, no bleed no
CTA head/neck imgs rev'd, mild carotid plaque, no significant stenosis, no LVO
MRI imgs rev'd, mild microvascular changes
49 year old woman with history of migraines, presenting with mild headache and right sided weakness/numbness,
after 24 hours patient still has trace right sided vibratory loss, so this is either stroke too small to see or new migraine aura
I have no further way of differentiating right now, would treat as stroke
however if she continues getting this same event habitually then migraine aura would be more likely, and she does not need to be re-evaluated if this recurrs
Plan
ASA 81 daily
Lipitor 40
d/c home
Subjective/Objective
Subjective Data
Date of Service: December 06, 2024
feels right sided weakness/numbness now resolved
mild headache
Objective Data
Vital Signs
Temp Pulse Resp BP Pulse Ox
36.6 C 80 18 128/58 97
12/06/24 11:20 12/06/24 11:20 12/06/24 11:20 12/06/24 11:20 12/06/24 11:20
Lab Results
12/06/24 05:28
12/06/24 05:28
Sodium 142 mmol/L (135-145) 12/06/24 05:28
Potassium 4.0 mmol/L (3.5-5.1) 12/06/24 05:28
BUN 11 mg/dl (7-17) 12/06/24 05:28
Glucose 93 mg/dl (70-99) 12/06/24 05:28
Calcium 9.2 mg/dl (8.4-10.2) 12/06/24 05:28
LDL Cholesterol, Calc 124 mg/dl 12/06/24 05:28
Patient Allergies
No Known Allergies Allergy (Verified 12/05/24 15:04)
Physical Exam
-
AAOx3, speech clear, language intact
VFF, EOMI, face symmetric
full strength b/l UE/LE
trace right sided vibratory loss
--- NOTE | 2024-12-06 13:26 | W.DS.TRANS ---
DC Summary - Lineman Apprentice
-
Discharge Instructions:
Discharge Diagnosis/Procedures Headache with Right Facial Numbness, possibly
Migraine with Aura
Diet Low Cholesterol
Blood Work cbc and bmp in week with pcp; Please follow up
with your cholesterol levels outpatient
Others Tests primary care screening
ECHO if needed by neurology
Instructions:
Stand-Alone Forms:
Changes to Home Medications: Yes
Discharge Medications:
DC Medications w/original date entered in [facility]
albuterol sulfate 90 mcg/actuation aerosol inhaler 2 puff inhalation Q6HPRN PRN wheezing 12/05/24
pantoprazole 40 mg tablet,delayed release 40 mg PO DAILY 12/05/24
aspirin 81 mg tablet 81 mg PO DAILY #90 tabs 12/06/24
atorvastatin 40 mg tablet 40 mg PO HS 30 days #30 tabs 12/06/24
Home Medication Changes
aspirin 81 mg tablet 81 mg PO DAILY #90 tabs 12/06/24
atorvastatin 40 mg tablet 40 mg PO HS 30 days #30 tabs 12/06/24
Pending Results: No
--- NOTE | 2024-12-06 13:51 | PTCARENOTE ---
Addendum entered by Colette Mendieta RN 12/06/24 15:15:
Patient states that this is an ongoing GI issue. States she is being followed by GI. Encouraged patient to make a follow up appointment with GI. Patient verbalizes understanding. All symptoms resolved at this time.
Addendum entered by Colette Mendieta RN 12/06/24 15:04:
Patient's heart rate in the 90s - sinus rhythm.
Original Note:
Patient's heart rate in 140s - Sinus tach. Patient found in bathroom. States that she has mucous in throat that she cannot clear. Patient breathing normally but coughing. Patient states that she has a history of esophagitis. MD notified. Heart rate
not 105 - sinus tach. Monitor patient for 2 hours prior to discharging as per MD.
[2024-12-06 13:54] LABS: Glycohemoglobin (HgbA1c) 5.9 % (4.0-5.6)
--- NOTE | 2024-12-06 14:10 | PTOTSP ---
Speech therapy
Presentation: Patient's speech and language appeared to be WNL during conversation. Patient shared she has been experiencing word finding difficulty for ~1 month which has gotten worse. Patient stated her speech is at baseline.
Swallowing Function: Patient was observed with several bites of regular consistency solids and sips of thin liquid in which patient appeared to tolerate as she did not exhibit any overt clinical s/sx of aspiration. Patient denied dysphagia
complaints.
Recommendations:
1) Regular consistency solids and thin liquids
2) Standard aspiration precautions
3) Medications as tolerated
4) Consideration of speech/ language evaluation (outpatient would be appropriate)
Plan: [employer]IER will continue to follow to ensure tolerance; pending hospitalization.
[2024-12-06 15:22] VITALS: BP 112/74
--- NOTE | 2024-12-06 15:50 | CM ---
Awake oriented patient who lives in college dorm on first floor. She is independent in activates of daily living.She does not drive .She lives in [place]. Her SO Martin here with support.Observation letter given . Pt did not sign letter on chart.
No VN in past . No SNF hx
Pharmacy [facility] [address]
PLAN Home with no needs
--- NOTE | 2024-12-06 16:13 | PTCARENOTE ---
Reviewed discharge instructions with patient. Patient verbalizes understanding of stroke education, medications and need for follow up. IV and tele removed. Patient denies questions at this time. Awaiting to transport home.
--- NOTE | 2024-12-06 16:21 | CM ---
Alert awake oriented patient who lives with her SO Josh in a 1 story home with 0 steps to enter. She is independent in activates of daily living.She does not drive .Observation letter given explained signed on chart.
No VN in past . No SNF hx
Pharmacy [facility]
PCP Dr Stephens
PLAN Home with no needs
== END 2024-12-06 16:09 | disposition home or self-care (01) ==
LOC: 4 EAST ACU 19:50
PROVIDERS: Emergency Medicine; Physician Assistant Medical; ADMITTING PHYSICIAN Internal Medicine; ATTENDING PHYSICIAN Internal Medicine; CONSULT PHYSICIAN Psychiatry & Neurology Clinical Neurophysiology; EMERGENCY PHYSICIAN Student in an Organized Health Care Education/Training Program
DX: R20.0 Anesthesia of skin (principal); R29.810 Facial weakness; R51.9 Headache, unspecified; R53.1 Weakness; J01.00 Acute maxillary sinusitis, unspecified; K76.0 Fatty (change of) liver, not elsewhere classified; J45.909 Unspecified asthma, uncomplicated; E78.5 Hyperlipidemia, unspecified; G93.0 Cerebral cysts; K20.0 Eosinophilic esophagitis; E66.01 Morbid (severe) obesity due to excess calories; Z87.19 Personal history of other diseases of the digestive system; Z82.49 Family history of ischemic heart disease and other diseases of the circulatory system; Z68.37 Body mass index [BMI] 37.0-37.9, adult; Z79.02 Long term (current) use of antithrombotics/antiplatelets; Z79.82 Long term (current) use of aspirin; Z79.899 Other long term (current) drug therapy
CPT/HCPCS: 70450; 70496; 70498; 70553; 80048; 80053; 80061; 83036; 83735; 85025; 85027; 92610; 97161; 97165; 99285; A9575; G0378; Q9967

== ENCOUNTER 2024-12-20 21:39 | Emergency (ER) | payer BC, SELFPAY ==
[2024-12-20 21:45] VITALS: BP 126/90
[2024-12-20 21:54] VITALS: BMI 39.3
[2024-12-20 22:01] VITALS: BP 115/76
--- NOTE | 2024-12-20 22:51 | ED.GENMED ---
History of Present Illness
General
Chief Complaint: Headache
Source: patient
Exam Limitations: none
Time Seen by Provider: 12/20/24 22:36
Nursing documentation reviewed up to this point in time: agreed with
History of Present Illness
History of Present Illness:
Pleasant 49-year-old female presents to the emergency department with a migraine headache. She states that she has a history of migraines and reports that this is a typical migraine. She rates it as a 6 out of 10 with 10 being the worst migraine
she is ever experienced. She came in today because as sometimes happens, her migraine medications do not work. She did have an SPG block placed by neurology several weeks ago but states that that it did not work. Denies numbness or tingling.
Reports no slurred speech blurry vision or chest pain. She did take Excedrin Migraine prior to her arrival and states that it took the edge off.
Past History
Past History
ED Past Medical History: Asthma, Other (Seasonal allergies) and Other (Intermittent esophageal food obstruction which generally resolve on their own. Prior upper endoscopy November 2021 showed normal esophagus, mild gastritis)
ED Past Surgical History: Other (Right Carpal Tunnel Surgery)
Patient has exhibited threatening behavior?: No
Social History
Tobacco: Non-smoker
Alcohol: None
Drug: None
Personal:
Living: with family
Employment: Employed ([employer])
Family History
Family History: CAD; Negative Early CAD
Review of Systems
Review of Systems
Allergies reviewed?: Yes
All Other Systems: ROS reviewed and negative except as documented in HPI and ROS
Constitutional: Denies fever or fatigue
EENT: Reports no symptoms
Respiratory: Reports no symptoms
Cardiac: Reports no symptoms
ABD/GI: Reports no symptoms
: Reports no symptoms
Musculoskeletal: Reports no symptoms
Skin: Reports no symptoms
Neurological: Reports headache; Denies dizzy, weakness or numbness
Endocrine: Reports no symptoms
Hematologic/Lymphatic: Reports no symptoms
Psychiatric: Reports no symptoms
Phy Exam
General Physical Exam
General Presentation: well appearing and no apparent distress
General Skin: warm and dry
General Habitus: normal
General Mental: alert
General Hydration: appears well hydrated
ENT Exam
ENT Exam: EOMI, pharynx normal, neck supple and normocephalic
Eye Exam
Eye Exam: PERRL, cornea clear and conjunctiva normal
Cardiovascular Exam
Cardiovascular Exam: regular rate/rhythm, no edema, no murmur and normal peripheral pulses
Pulmonary Exam
Pulmonary Exam: lungs clear, no respiratory distress, no rales, no crackles, no rhonchi, no stridor, no wheezing and no cough
Gastrointestinal Exam
Gastrointestinal Exam: normal bowel sounds, non tender, soft, no organomegaly, no pulsatile mass and non distended
Neurological Exam
Neurological Exam: alert, oriented x3, no motor deficits and speech normal
Musculoskeletal Exam
Musculoskeletal Exam: full ROM and no edema
Skin Exam
Skin Exam: normal color, warm/dry, no rash and no petechia
Psychiatric Exam
Psychiatric Exam: normal mood/affect
Course
Orders/Labs/Results
Orders:
Orders
12/20/24 22:46
0.9% Sodium Chloride 1000 ml [Nss] 1,000 ml IV BOLUS
Dexamethasone Sod Phosphate [Decadron] 10 mg IV NOW STA
Diphenhydramine [Benadryl] 25 mg IV NOW STA
Ketorolac [Toradol] 15 mg IV NOW STA
Metoclopramide [Reglan] 10 mg IV NOW STA
Vital Signs
Initial and Last Documented VS:
Initial Vital Signs
Temp Pulse Resp BP Pulse Ox
98.4 F 80 20 126/90 100
12/20/24 21:45 12/20/24 21:45 12/20/24 21:45 12/20/24 21:45 12/20/24 21:45
Last Documented Vital Signs
Temp Pulse Resp BP Pulse Ox
98.4 F 80 20 119/86 93
12/20/24 21:45 12/20/24 21:45 12/20/24 21:45 12/21/24 01:00 12/21/24 01:30
*Critical Care Note
Total Time (30-74mins, 75-104mins- exclusive of procedures): Not Applicable
Update Note
Update Note:
Patient ambulating to the bathroom. Feeling better.
Drink apple juice without issue
ED Attending Note
-
Portions of this chart may have been created with voice recognition software.� Occasional wrong word or��sound alike� substitutions may have occurred due to the inherent limitations of voice recognition software.
Discharge Plan
Departure
Patient Disposition: Home (Routine Discharge)
Date of Disposition: 12/21/24
Time of Disposition: 01:44
Patient with high blood pressure during this ER visit?: No
Discharge Problem:
Headache, migraine
Instructions: Headache, Adult (DC)
Prescriptions:
No Action
pantoprazole 40 mg tablet,delayed release (DR/EC)
40 mg PO DAILY
albuterol sulfate 90 mcg/actuation HFA aerosol inhaler
2 puff INHALATION Q6HPRN PRN (Reason: wheezing)
atorvastatin 40 mg tablet
40 mg PO HS 30 Days Qty: 30 0RF
aspirin 81 mg tablet
81 mg PO DAILY Qty: 90 0RF
Referrals:
Armin Stephens MD [Family Provider] -
Activity Restrictions/Additional Instructions:
Thank You for choosing [facility].
It was a pleasure meeting you and taking part in your care. We hope for your continued healing and wellness.
Please read discharge instructions in their entirety. However, they are for general education and may not describe your exact diagnosis at discharge. Information on your ER visit and medical conditions were discussed with you along with appropriate
follow up information...
If indicated, please take your medications as instructed and indicated on discharge paperwork.
Please schedule a follow up appointment as directed. Call to schedule an appointment
Please return to the emergency department with ANY change in, persisting, or worsening of symptoms. If any of your symptoms do not improve, or persist, or become more severe within 6-12 hours, please return to the emergency department for further
care.
Please return to the emergency department if you develop a headache, neck pain/stiffness, fever greater than 100.4F, chest pain, shortness of breath, persistent nausea, vomiting, slurred speech, difficulty walking, numbness/tingling, weakness, signs
of infection or any other symptoms that are worrisome to you.
If you have any questions or concerns please do not hesitate to call the Hospital at or E-mail me directly at [email or web address]
Interventions
Interventions:
*Risk Screen - Suicide Last Done: 12/20/24 21:45
*General Assessment Last Done: 12/20/24 21:54
*Neglect/Abuse Screening Last Done: 12/20/24 21:45
*ED- Fall Risk Assessment Last Done: 12/20/24 21:54
*ED COVID-19 Vaccine History Last Done: 12/20/24 21:54
*Nursing Disposition Last Done: 12/21/24 02:04
ED- Neurological Assessment Last Done: 12/20/24 21:54
Discharge Date and Time
Discharge Date/Time: 12/21/24 02:07
Print Language: EGYPTIAN
[2024-12-20] MEDS: REGLAN 10 MG IV (22:57)
[2024-12-20] MEDS: BENADRYL 25 MG IV (22:58)
[2024-12-20] MEDS: TORADOL 15 MG IV (22:59)
[2024-12-20 23:00] VITALS: BP 133/83
[2024-12-20] MEDS: DECADRON 10 MG IV (23:00)
[2024-12-20] MEDS: NSS 1000 IV (23:01)
[2024-12-21] VITALS: BP 115/76
[2024-12-21 01:00] VITALS: BP 119/86
== END 2024-12-21 02:07 | disposition home or self-care (01) ==
LOC: EMR 21:39
PROVIDERS: EMERGENCY PHYSICIAN Student in an Organized Health Care Education/Training Program; FAMILY PHYSICIAN Internal Medicine
DX: G43.909 Migraine, unspecified, not intractable, without status migrainosus (principal); J45.909 Unspecified asthma, uncomplicated; Z82.49 Family history of ischemic heart disease and other diseases of the circulatory system; Z87.19 Personal history of other diseases of the digestive system
CPT/HCPCS: 99283; 96374; 96375; 96361